=== PATIENT | male | born 1935 | race Caucasian/White ===

== ENCOUNTER 2020-08-29 09:54 | Inpatient (IN) | payer MEDICARE ==
[~2020-08-29] VITALS: Ht 172.7 cm; Wt 62.4 kg
[2020-08-29 10:00] VITALS: BP 119/89
[2020-08-29] MEDS ORDERED: IBUPROFEN 200200 M1 PO (10:20)
[2020-08-29 10:49] LABS: ABSOLUTE EOSINOPHILS 0.1 thou/uL (0.0-0.7); ABSOLUTE LYMPHOCYTES 1.8 thou/uL (0.8-5.3); ABSOLUTE MONOCYTES 0.9 thou/uL (0.0-1.2); ABSOLUTE NEUTROPHILS 5.3 thou/uL (1.6-8.1); BASOPHILS 0.6 %; EOSINOPHILS 1.5 %; HEMATOCRIT 43.8 % (42.0-52.0); HEMOGLOBIN 14.9 gm/dL (14.0-18.0); MCH 32.7 pg (26.0-34.0); MCHC 33.9 g/dL (28.0-37.0); MCV 96.4 fL (80.0-100.0); MONOCYTES 10.8 %; MPV 7.1 fl. (7.2-11.1); NUCLEATED RBCS 0 /100WBC; PLATELET COUNT* 279 thou/uL (150-400); POLYS 65.1 %; RBC 4.55 mil/uL (4.50-6.00); RDW-CV 13.7 % (10.5-14.5); WBC 8.2 thou/uL (4.0-11.0)
[2020-08-29 10:51] LABS: CREATININE 1.2 mg/dL (0.6-1.3); POTASSIUM 4.2 mmol/L (3.5-5.1)
[2020-08-29 11:05] LABS: APTT 27.7 Seconds (25.0-31.3); PROTIME 10.3 Seconds (9.20-11.50)
[2020-08-29 11:06] LABS: ALBUMIN 3.2 g/dL (3.4-5.0); CK-MB MASS 0.8 ng/mL (<0.5-3.6); TOTAL BILIRUBIN 0.8 mg/dL (<0.1-1.0); TOTAL PROTEIN 7.4 g/dL (6.4-8.2)
[2020-08-29 13:25] VITALS: BP 93/51
[2020-08-29 16:48] VITALS: BP 147/66
[2020-08-29 20:00] VITALS: BP 107/57
[2020-08-30 00:30] VITALS: BP 102/57
[2020-08-30 04:00] VITALS: BP 130/66
[2020-08-30 04:59] LABS: ABSOLUTE BASOPHILS 0.1 thou/uL (0.0-0.2); ABSOLUTE EOSINOPHILS 0.1 thou/uL (0.0-0.7); ABSOLUTE LYMPHOCYTES 1.9 thou/uL (0.8-5.3); ABSOLUTE MONOCYTES 0.9 thou/uL (0.0-1.2); ABSOLUTE NEUTROPHILS 4.8 thou/uL (1.6-8.1); BASOPHILS 0.8 %; EOSINOPHILS 1.5 %; HEMATOCRIT 39.3 % (42.0-52.0); HEMOGLOBIN 13.3 gm/dL (14.0-18.0); LYMPHOCYTES 24.2 %; MCH 32.4 pg (26.0-34.0); MCHC 33.8 g/dL (28.0-37.0); MCV 95.7 fL (80.0-100.0); MONOCYTES 11.3 %; MPV 7.4 fl. (7.2-11.1); NUCLEATED RBCS 0 /100WBC; PLATELET COUNT* 271 thou/uL (150-400); POLYS 62.2 %; RDW-CV 13.4 % (10.5-14.5); WBC 7.7 thou/uL (4.0-11.0)
[2020-08-30 05:19] LABS: ANION GAP 7 mmol/L (7-16); BUN 11 mg/dL (7-18); CALCIUM 8.5 mg/dL (8.5-10.1); CHLORIDE 101 mmol/L (98-107); CO2 29 mmol/L (21-32); CREATININE 1.2 mg/dL (0.6-1.3); GLUCOSE 95 mg/dL (70-99); SODIUM 137 mmol/L (136-145); TROPONIN-I LEVEL <0.06 ng/mL (<0.06)
[2020-08-30 08:00] VITALS: BP 118/58
--- NOTE | 2020-08-30 09:48 | EKG ---
[place] [address] ELECTROCARDIOGRAM REPORT Name: ESTEVAN GARCIA Room: [address] ADM IN M.R.#: [id number] Admission: 08/29/20 Attend Phys: Jasvir James, Discharge: Date of : 35 Date of Service: 08/29/20 1006 Report #: [id number] THIS REPORT FOR: //name// [facility] ED Test Date: 2020-08-29 Test Time: 10:06:19 Pat Name: ESTEVAN GARCIA Department: Room: [facility] Gender: M Toolmaker: BREE : 1935 Requested By: Henrry Avendano Order Number: [id number] MD: Chad Chiu Measurements Intervals [place] Rate: 152 P: 0 [place]: 67 QRS: -5 QRSD: 85 T: 89 QT: 266 QTc: 423 Interpretive Statements Supraventricular tachycardia Nonspecific T abnormalities, lateral leads Baseline wander in lead(s) V2,V3 No previous ECG available for comparison Electronically Signed On 08-30-2020 9:48:29 CDT by Chad Chiu [email or web address] <ELECTRONICALLY SIGNED> By: Chad Chiu MD, [facility] 08/30/20 0948 1006 1006 Chad Chiu MD, [facility] /EPI
--- NOTE | 2020-08-30 09:50 | EKG ---
[place] [address] ELECTROCARDIOGRAM REPORT Name: ESTEVAN GARCIA Room: [address] ADM IN M.R.#: [id number] Admission: 08/29/20 Attend Phys: Jasvir James, Discharge: Date of : 35 Date of Service: 08/29/20 1112 Report #: [id number] THIS REPORT FOR: //name// [facility] ED Test Date: 2020-08-29 Test Time: 11:12:39 Pat Name: ESTEVAN GARCIA Department: Room: [facility] Gender: M Biology Intern: CHRYSTAL : 1935 Requested By: Henrry Avendano Order Number: [id number] MD: Chad Chiu Measurements Intervals [place] Rate: 64 P: 47 [place]: 164 QRS: -18 QRSD: 82 T: 65 QT: 387 QTc: 400 Interpretive Statements Sinus rhythm Supraventricular bigeminy Left ventricular hypertrophy Baseline wander in lead(s) V1,V2,V4 Compared to ECG 08/29/2020 10:06:19 Left ventricular hypertrophy now present Supraventricular tachycardia no longer present Electronically Signed On 08-30-2020 9:50:44 CDT by Chad Chiu [email or web address] <ELECTRONICALLY SIGNED> By: Chda Chiu MD, [facility] 08/30/20 0950 11 1112 Chad Chiu MD, [facility] /EPI
--- NOTE | 2020-08-30 09:56 | EKG ---
[place] [address] ELECTROCARDIOGRAM REPORT Name: ESTEVAN GARCIA Room: [address] ADM IN M.R.#: [id number] Admission: 08/29/20 Attend Phys: Jasvir James, Discharge: Date of : 35 Date of Service: 08/30/20 0837 Report #: [id number] THIS REPORT FOR: //name// [facility] Test Date: 2020-08-30 Test Time: 08:37:31 Pat Name: ESTEVAN GARCIA Department: Room: [address] Gender: M Director Erp: : 1935 Requested By: Mone Flores Order Number: [id number] Ambrose MD: Chad Chiu Measurements Intervals [place] Rate: 59 P: 57 [place]: 159 QRS: -9 QRSD: 89 T: 62 QT: 389 QTc: 386 Interpretive Statements Sinus rhythm Atrial premature complex Baseline wander in lead(s) V1 Compared to ECG 08/29/2020 11:12:39 Left ventricular hypertrophy no longer present Electronically Signed On 08-30-2020 9:56:27 CDT by Chad Chiu [email or web address] <ELECTRONICALLY SIGNED> By: Chad Chiu MD, [facility] 08/30/20 0956 0837 0837 Chad Chiu MD, [facility] /EPI
--- NOTE | 2020-08-30 13:48 | 2DMMODE ---
[place] [address] 2 D/M-MODE ECHOCARDIOGRAM Name: ESTEVAN GARCIA Room: [address] IN [place].#: [id number] Admission: 08/29/20 Attend Phys: Jasvir James, Discharge: Date of : 35 Date of Service: 08/30/20 1348 Report #: [id number] THIS REPORT FOR: cc: Rocael Conte Gregory DO Blick,Chad Narvaez MD [facility] ~ APPROVED REPORT Study performed: 08/30/2020 10:16:49 EXAM: Comprehensive 2D, Doppler, and color-flow Echocardiogram Patient Location: In-Patient Room #: [facility] Status: routine BSA: 1.76 HR: 72 bpm BP: 130/66 mmHg Rhythm: NSR Other Information Study Quality: Good Indications Tachycardia Chest Pain 2D Dimensions IVSd: 9.17 (7-11mm) LVOT Diam: 18.85 (18-24mm) LVDd: 44.98 mm PWd: 8.73 (7-11mm) Ascending Ao: 35.15 (22-36mm) LVDs: 32.01 (25-40mm) Aortic Root: 32.65 mm Volumes Left Atrial Volume (Systole) LA ESV Index: 21.80 mL/m2 Aortic Valve AoV Peak Isak.: 1.38 m/s AO Peak Gr.: 7.58 mmHg LVOT Max P.17 mmHg AO Mean Gr.: 3.82 mmHg LVOT Mean P.28 mmHg LVOT Max V: 1.14 m/s AO V2 VTI: 24.70 cm LVOT Mean V: 0.68 m/s REENA (VTI): 2.53 cm2 LVOT V1 VTI: 22.40 [place] [address] 2 D/M-MODE ECHOCARDIOGRAM Name: ESTEVAN GARCIA Room: [address] IN ..#: [id number] Admission: 08/29/20 Attend Phys: Jasvir James, Discharge: Date of : 35 Date of Service: 08/30/20 1348 Report #: [id number] Emery: 1.65 m/s2 AI PHT: 649.89 ms Mitral Valve E/A Ratio: 0.73 MV Decel. Time: 184.40 ms MV E Max Isak.: 0.61 m/s MV PHT: 53.48 ms MVA (PHT): 4.11 cm2 TDI E/Lateral E': 10.17 E/Medial E': 7.63 Medial E' Isak.: 0.08 m/s Lateral E' Isak.: 0.06 m/s Pulmonary Valve PV Peak Isak.: 0.86 m/s PV Peak Gr.: 2.97 mmHg Tricuspid Valve RAP Estimate: 5.00 mmHg TR Peak Gr.: 17.07 mmHg RVSP: 22.00 mmHg PA Pressure: 22.00 mmHg Left Ventricle The left ventricle is normal size. There is normal LV segmental wall motion. There is normal left ventricular wall thickness. Left ventricular systolic function is normal. The left ventricular ejection fraction is within the normal range. LVEF is 55-60%. Grade I - abnormal relaxation pattern. Right Ventricle The right ventricle is normal size. The right ventricular systolic function is normal. Atria The left atrium size is normal. The right atrium size is normal. Aortic Valve Mild aortic valve sclerosis. Mild aortic regurgitation. There is no aortic valvular stenosis. Mitral Valve The mitral valve is normal in structure. Trace mitral regurgitation. No evidence of [place] [address] 2 D/M-MODE ECHOCARDIOGRAM Name: ESTEVAN GARCIA Room: [address]#: [id number] Admission: 08/29/20 Attend Phys: Jasvir James, Discharge: Date of : 35 Date of Service: 08/30/20 1348 Report #: [id number] Tricuspid Valve The tricuspid valve is normal in structure. Mild tricuspid regurgitation. No pulmonary hypertension. Pulmonic Valve The pulmonary valve is normal in structure. Trace pulmonic regurgitation. Great Vessels The aortic root is normal in size. IVC is normal in size and collapses >50% with inspiration. Pericardium There is no pericardial effusion. <Conclusion> LVEF is 55-60%. Mild aortic valve sclerosis. Mild aortic regurgitation. Trace mitral regurgitation. <ELECTRONICALLY SIGNED> By: Chad Chiu MD, FACC 08/30/20 1348 1348 1348 Chad Chiu MD, FACC /INF
[2020-08-30 16:24] VITALS: BP 98/57
[2020-08-30 20:00] VITALS: BP 133/78
[2020-08-31] VITALS: BP 126/49
[2020-08-31 04:00] VITALS: BP 113/71
[2020-08-31 05:20] LABS: MCH 32.5 pg (26.0-34.0); MCHC 34.1 g/dL (28.0-37.0); MCV 95.3 fL (80.0-100.0); MPV 7.4 fl. (7.2-11.1); RBC 4.31 mil/uL (4.50-6.00); RDW-CV 13.3 % (10.5-14.5)
[2020-08-31 05:31] LABS: CALCIUM 8.7 mg/dL (8.5-10.1); CREATININE 1.2 mg/dL (0.6-1.3)
[2020-08-31 08:23] VITALS: BP 116/80
[2020-08-31 11:30] VITALS: BP 110/61
--- NOTE | 2020-08-31 13:17 | CARD ---
[address] [address] CARDIAC CATH REPORT Name: ESTEVAN GARCIA Room: [address] ADM IN ..#: [id number] Admission: 08/29/20 Attend Phys: Jasvir James MD Discharge: Date of : 35 Report #: [id number] THIS REPORT FOR: cc: Rocael Conte Gregory DO Blick, David R. MD [facility] ~ APPROVED REPORT Study performed: 08/30/2020 11:00:18 Patient Status: In-Patient Room #: 220 Event Personnel: Chad Chiu Auditor In Charge, Summer Dhillon RN RN, Petey Fernandez Scrub, Magdy Velasquez RTR Monitor Exam: Insertion of Dual Chamber Permanent Pacemaker Indications: Sick Sinus Syndrome/Tachy Clint Syndrome The patient is a 84 year-old male with a history of Chest Pain. Conscious Sedation Start time: 11:56 End Time: 13:10 Fentanyl 25 mcg Versed 2 mg Implanted Devices: Medtronic Krys S DR GIO Banrey Procedure The patient underwent informed consent. We discussed the details of the procedure including the risks, which include, but not limited to bleeding, infection, vascular damage, cardiac perforation, and pneumothorax. He understood these risks and was willing to proceed. As such, he was brought to the EP/Cardiac Catheterization laboratory in a fasting and sedated state and prepped and draped in a sterile fashion, received IV antibiotics prior to initiation of the procedure and a venogram was performed showing patency of the left axillary vein. The patient underwent conscious sedation, with no related complications. The patient was brought to the EP/Cardiac Catheterization laboratory and the left chest and shoulder were prepped and draped in a sterile manner. During this case, Fluoroscopy and Omnipague 30cc were used for imaging. IV conscious sedation was used throughout procedure with appropriate monitoring and was performed in the [place] [address] CARDIAC CATH REPORT Name: EYALESTEVAN PERSON Room: [address] IN [facility].#: [id number] Admission: 08/29/20 Attend Phys: Jasvir James MD Discharge: Date of : 35 Report #: [id number] who was an independent trained observer other than the physician performing the procedure. The left subclavian region was infiltrated with 2% Lidocaine with Epinephrine subcutaneous anesthesia. A transverse incision was made in the left upper chest cavity. The subcutaneous pocket was formed via blunt dissection. Percutaneous venous access was achieved and an introducer sheath was inserted into the left Subclavian vein. Sheaths were positions using the modified Seldinger technique Through the introducer sheaths the atrial and ventricular lead wires were positioned in the right atrial appendage and right ventricular apex respectively. Utilizing fluoroscopic guidance, the atrial and ventricular lead wires were advanced over the wires and positioned in the right atria and right ventricle respectively. Capturing and sensing thresholds were verified. Electrode Parameters P Wave: greater than 1.5mv R Wave: greater than 5 mv Atrial Threshold: less than 1.0 V Ventricular Threshold: less than 1.0 V Atrial Resistance: normal Ventricular Resistance: normal Dual Chamber The atrial and ventricular leads were then secured using 0 silk sutures. The subcutaneous pocket was irrigated with ancef antibiotic solution.The atrial and ventricular leads were attached to the appropriate receptacles on the pulse generator and set screws firmly tightened to insure adequate contact and stability. The lead and pulse generator were placed into the subcutaneous pocket. Sharp and sponge counts were confirmed to be correct. At this time the pocket was closed subcutaneously with a 0 Vicryl and 2.0 Vicryl and the skin was closed with a 4.0 Vicryl. The operative site was dressed in sterile fashion with Dermabond and the patient was transferred to the floor in stable condition. Complications The patient tolerated the procedure well and there were no complications associated with the procedure. Findings Specimens Removed: No Estimated Blood Loss: less than 5 [place] [address] CARDIAC CATH REPORT Name: EYALNAYAESTEVAN Room: [address] IN M.R.#: [id number] Admission: 08/29/20 Attend Phys: Jasvir James MD Discharge: Date of : 35 Report #: [id number] Conclusion successful placement of a dual chamber MRI compatible medtronic generator and leads. <ELECTRONICALLY SIGNED> By: Chad Chiu MD, FACC 08/31/20 1317 16 1317Dafadi Chiu MD, FAC /INF
[2020-08-31 16:00] VITALS: BP 112/68
--- NOTE | 2020-08-31 17:24 | CON ---
[address] [address] CONSULTATION Name: ESTEVAN GARCIA Room: [address] ADM IN M.R.#: [id number] Admission: 08/29/20 Attend Phys: Jasvir James MD Discharge: Date of : 35 Report #: [id number] THIS REPORT FOR: cc: Rocael Conte Gregory DO Blick, David R. MD [facility] ~ DOC #: [id number] Chad Chiu MD [facility] DATE OF CONSULTATION: 08/30/2020 HISTORY OF PRESENT ILLNESS: The patient is an 84-year-old single white male who I was asked to see in the hospital today after he was noted to be tachycardic. The patient has no previous history of heart disease. He stays very active, going for walks. He notes he has had an episode of rapid heartbeat several weeks ago, lasted about 15 minutes. Yesterday, he was at home when he felt a dull discomfort in his chest. There is no radiation. Denies any shortness of breath, diaphoresis, nausea. He has a dry cough. He has had no fever. He also noticed his heart was racing. He finally drove himself to [facility] and admitted. He was noted to be tachycardic and was given metoprolol. I was asked to see him for further evaluation and treatment. He denies history of exertional dyspnea, peripheral edema, syncope, heart murmur. He also noticed he took his blood pressure at home, it is elevated at 184/97. He has no previous history of hypertension. He has never been on medications. Denies any headache, heart murmur, sweating spells. PAST MEDICAL HISTORY: He has tonsillectomy, hemorrhoidectomy. He recently was started on a steroid Dosepak for joint pain. MEDICATIONS: Consist of only ibuprofen. ALLERGIES: HE HAS A PREVIOUS INTOLERANCE TO EXCEDRIN. FAMILY HISTORY: Negative for heart disease. SOCIAL HISTORY: He is , lives by himself. Quit smoking years ago. No alcohol abuse. No caffeine use. No illicit drug use. REVIEW OF SYSTEMS: He has had no history of stroke, asthma, liver disease, kidney disease. He has a history of enlarged prostate and has had 2 biopsies in the past. No chronic skin condition. No psychiatric illness. PHYSICAL EXAMINATION: GENERAL: Revealed an elderly male, lying in bed, appears in no distress. VITAL SIGNS: His current blood pressure is 120/60, pulse is 70, he is afebrile. HEENT: Anicteric, conjunctivae pink[place] [address] CONSULTATION Name: ESTEVAN GARCIA Room: [address] IN [facility]#: [id number] Admission: 08/29/20 Attend Phys: Jasvir James MD Discharge: Date of : 35 Report #: [id number] NECK: Neck veins are not distended. No carotid bruits. Neck is supple. CHEST: Clear to auscultation. HEART: Regular rate and rhythm without murmur. ABDOMEN: Soft. EXTREMITIES: Had no edema. Posterior tibial pulse 2+ bilaterally. SKIN: Cool and dry. NEUROLOGIC: Nonfocal. LABORATORY DATA: His ECG when he arrived in the emergency room yesterday morning showed a narrow complex tachycardia consistent with supraventricular tachycardia. There was no significant ST or T-wave changes noted. He then had another episode of a narrow complex tachycardia. Atrial flutter could not be excluded with a 2:1 ventricular response rate. The patient was given a dose of digoxin and now is in a sinus rhythm. He also had an episode last night of an irregular tachycardia that suggested atrial fibrillation with rapid ventricular response rate. After digoxin, he then had a pause lasting almost 5 seconds. His workup in the emergency room, he had a chest x-ray that showed clear lung li and normal heart size. His lab work, sodium 137, creatinine 1.2. His troponins were all less than 0.06. His BNP is 1270. TSH is 4.0. White blood cell count 7.7, hemoglobin 13.3. His COVID antigen stat test was negative. IMPRESSION AND RECOMMENDATIONS: 1. Supraventricular tachycardia. 2. Episode of atrial fibrillation, I would consider anticoagulation. 3. Sick sinus syndrome. The patient had a pause of over 5 seconds. Recommend permanent pacemaker. 4. Hypertension. Recommend treatment. 5. Degenerative joint disease. The patient recently on a steroid Dosepak. 6. Prostatism. Previous biopsy was negative. Chad Chiu MD [facility] <ELECTRONICALLY SIGNED> By: Chad Chiu MD, [facility] 08/31/20 1724 0741 0813Chad Chiu MD, FAC /nt
[2020-08-31 20:00] VITALS: BP 100/61
[2020-09-01 04:11] LABS: HEMATOCRIT 41.2 % (42.0-52.0); MCH 32.2 pg (26.0-34.0); MCV 94.9 fL (80.0-100.0); MPV 7.3 fl. (7.2-11.1); RBC 4.34 mil/uL (4.50-6.00); RDW-CV 13.5 % (10.5-14.5); WBC 7.7 thou/uL (4.0-11.0)
[2020-09-01 04:29] LABS: CALCIUM 8.7 mg/dL (8.5-10.1); CREATININE 1.1 mg/dL (0.6-1.3)
[2020-09-01 07:53] VITALS: BP 114/73
[2020-09-01 10:56] VITALS: BP 114/73
[2020-09-01] MEDS ORDERED: SORINE 80 MG TA80 M1 PO (10:56)
--- NOTE | 2020-09-01 11:30 | EKG ---
[place] [address] ELECTROCARDIOGRAM REPORT Name: ESTEVAN GARCIA Room: [address] ADM IN M.R.#: [id number] Admission: 08/29/20 Attend Phys: Jasvir James, Discharge: Date of : 35 Date of Service: 09/01/20 0859 Report #: [id number] THIS REPORT FOR: //name// [facility] Test Date: 2020-09-01 Test Time: 08:59:10 Pat Name: ESTEVAN GARCIA Department: Room: [address] Gender: M Program Project Analyst: : 1935 Requested By: Chad Chiu Order Number: [id number] Reading MD: Chad Chiu Measurements Intervals [place] Rate: 71 P: [place]: 169 QRS: -11 QRSD: 90 T: 68 QT: 399 QTc: 434 Interpretive Statements Atrial-paced rhythm Probable anteroseptal infarct, old Compared to ECG 08/30/2020 08:37:31 Sinus rhythm no longer present Atrial premature complex(es) no longer present Electronically Signed On 09-01-2020 11:30:21 CDT by Chad Chiu [email or web address] <ELECTRONICALLY SIGNED> By: Chad Chiu MD, [facility] 09/01/20 1130 0859 0859 Chad Chiu MD, [facility] /EPI
== END 2020-09-01 11:25 | disposition home or self-care (01) | DRG 243 ==
LOC: M.ERS 09:54 → M.TBA-ER 11:38 → M.2W 11:38
PROVIDERS: Family Medicine; ADMIT Internal Medicine; ATTEND Internal Medicine
PROC: 0JH606Z Insertion of Pacemaker, Dual Chamber into Chest Subcutaneous Tissue and Fascia, Open Approach (ICD-10-PCS; principal; 2020-08-30)
PROC: 02H63JZ Insertion of Pacemaker Lead into Right Atrium, Percutaneous Approach (ICD-10-PCS; principal; 2020-08-30)
PROC: 02HK3JZ Insertion of Pacemaker Lead into Right Ventricle, Percutaneous Approach (ICD-10-PCS; principal; 2020-08-30)
DX: I49.5 Sick sinus syndrome (principal); I48.20 Chronic atrial fibrillation, unspecified; E44.1 Mild protein-calorie malnutrition; I47.1 Supraventricular tachycardia; M19.90 Unspecified osteoarthritis, unspecified site; I10 Essential (primary) hypertension; Z20.822 Contact with and (suspected) exposure to COVID-19; Z87.891 Personal history of nicotine dependence; Z88.8 Allergy status to other drugs, medicaments and biological substances; Z79.899 Other long term (current) drug therapy; Z72.89 Other problems related to lifestyle; Z68.20 Body mass index [BMI] 20.0-20.9, adult